=== PATIENT | female | born 1980 | race Caucasian/White ===

== ENCOUNTER 2017-06-04 08:30 | Inpatient (IN) | payer OTHER, BC ==
[2017-06-05] MEDS ORDERED: CITRIC ACID/SODIUM CITRATE 30 ML UNIT-DOSE CUP PO ONE ×2 (08:16→09:25)
[2017-06-05] MEDS ORDERED: ELECTROLYTE-148 SOLN 500 ML IV ONE (09:25)
[2017-06-05] MEDS: ELECTROLYTE-148 SOLN 1,000 ML IV SCH (10:00)
--- NOTE | 2017-06-05 10:41 | HP ---
Past Medical History - Primary Care Physician PCP:: Edin Almonte - Admission Chief Complaint: 39,2 weeks, previous c/s request of repeat c/s. ama History of Present Illness: 36 yo f 39,3 weeks, previous c/s , request of repeat c/s , rba discussed , explained declined History Source: Patient Limitations to Obtaining History: No Limitations - Past Medical History Pulmonary: Yes: Asthma ...: 2 ...Para: 1 ...Term: 1 ...: 0 ...Spon : 0 ...Induced : 0 ...Multiple Gestation: 0 ...LMP: 09/03/16 ... Weeks Gestation by Dates: 39.2 ...EDC by Dates: 06/10/17 ...EDC by Sono: 06/10/17 - Past Surgical History Past Surgical History: Yes: Hx Myomectomy: No Hx Transabdominal Cerclage: No - Smoking History Smoking history: Never smoked Have you smoked in the past 12 months: No Aproximately how many cigarettes per day: 2 - Alcohol/Substance Use Hx Alcohol Use: No History of Substance Use: reports: None - Social History Usual Living Arrangement: Yes: With Spouse History of Recent Travel: No Home Medications - Allergies Allergies/Adverse Reactions: Allergies Allergy/AdvReac Type Severity Reaction Status Date / Time Sulfa (Sulfonamide Allergy Unknown Rash Verified 06/05/17 08:44 Antibiotics) - Home Medications Home Medications: Ambulatory Orders Docusate Sodium [Colace -] 100 mg PO DAILY 06/05/17 Montelukast Na [Singulair -] 10 mg PO HS 06/05/17 Vit/Iron Fumarate/FA [ Tablet] 1 each PO DAILY 06/05/17 Ranitidine HCl [Zantac] 150 mg PO DAILY 06/05/17 Family Disease History - Family Disease History Family Disease History: CA: Grandparent (colon), Father (colon) Review of Systems - Review of Systems Constitutional: reports: No Symptoms Eyes: reports: No Symptoms HENT: reports: No Symptoms Neck: reports: No Symptoms Cardiovascular: reports: No Symptoms Respiratory: reports: No Symptoms Gastrointestinal: reports: Constipation, Indigestion Breasts: reports: No Symptoms Reported Musculoskeletal: reports: No Symptoms Integumentary: reports: No Symptoms Neurological: reports: No Symptoms Endocrine: reports: No Symptoms Hematology/Lymphatic: reports: No Symptoms Psychiatric: reports: No Symptoms Physical Exam - Maternity Vital Signs: Vital Signs Temperature 97.9 F 06/05/17 08:16 Pulse Rate 90 06/05/17 10:00 Respiratory Rate 20 06/05/17 10:00 Blood Pressure 103/64 06/05/17 10:00 O2 Sat by Pulse Oximetry (%) Constitutional: Yes: Well Nourished, No Distress, Calm Eyes: Yes: WNL, Conjunctiva Clear, EOM Intact HENT: Yes: WNL, Atraumatic, Normocephalic Neck: Yes: WNL, Supple, Trachea Midline Cardiovascular: Yes: WNL, Regular Rate and Rhythm Breast(s): Yes: WNL - Abdominal Exam/OB Fundal Height: 40 Number of Fetuses: Single Presentation: Vertex Monitor Mode: External Heart Rate Location: [facility] Category: I Accelerations: Uniform Decelerations: None - Vaginal Exam/OB Vaginal Bleediing: No Speculum Exam: No Dilatation (cm): closed Effacement (%): 0 Amniotic Membrane Status: Intact Presentation: Vertex/Position Station: -3 - Physical Exam Musculoskeletal: Yes: WNL Edema: Yes Edema: LLE: Trace, RLE: Trace Deep Tendon Reflex Grade: Normal +2 ...Motor Strength: WNL Psychiatric: Yes: WNL Hemorrhage Risk Assessment - Risk Factors Medium Risk Factors: Yes: None High Risk Factors: Yes: None Risk Score: 1 Risk Level: Medium Risk Problem List - Problems (1) with 39 completed weeks gestation Code(s): Z3A.39 - 39 WEEKS GESTATION OF (2) Previous section complicating , antepartum condition or complication Code(s): O34.219 - MATERNAL CARE FOR UNSP TYPE SCAR FROM PREVIOUS DEL Assessment/Plan for repeat c/s , rba discussed
[2017-06-05] MEDS ORDERED: WITCH HAZEL 50% (TUCKS) 40 PAD/JAR PAD TP PRN (10:44)
[2017-06-05] MEDS ORDERED: BENZOCAINE 28 GM HEMORRHOIDAL OINTMENT PR PRN (10:44)
[2017-06-05] MEDS ORDERED: METHYLERGONOVINE MALEATE 0.2 MG/1 ML AMP IM PRN (10:44)
[2017-06-05] MEDS ORDERED: oxyCODONE HCL 5 MG TABLET PO PRN ×2 (10:44)
[2017-06-05] MEDS ORDERED: diphenhydrAMINE HCL 25 MG CAPSULE (FP) PO PRN (10:44)
[2017-06-05] MEDS ORDERED: BENZOCAINE 20% 57 GM BOTTLE TP PRN (10:44)
[2017-06-05] MEDS ORDERED: OXYTOCIN 20 UNITS in 0.9% NS 1,000 ML IV SCH (10:45)
[2017-06-05] MEDS ORDERED: ONDANSETRON 4 MG/2 ML VIAL IVPB PRN (11:32)
[2017-06-05 13:52] VITALS: BMI 23.6
[2017-06-05] MEDS: IBUPROFEN 800 MG/8 ML IJ IVPB PRN ×2 (14:41→21:38)
--- NOTE | 2017-06-05 15:09 | OP ---
DATE OF OPERATION: 06/05/2017 PREOPERATIVE DIAGNOSIS: at 39.4 weeks' gestation, previous section, request for section. POSTOPERATIVE DIAGNOSIS: at 39.4 weeks' gestation, previous section, request for section. PROCEDURE PERFORMED: Repeat low-segment transverse section. SURGEON: Kelsi Oneill MD DAMAGE ASSESSOR: MARTIN Suarez ANESTHESIA: Spinal. ANESTHESIOLOGIST: Anthony Gonzalez MD ESTIMATED BLOOD LOSS: 500 mL. DESCRIPTION OF PROCEDURE: The patient was taken to the operating room and had adequate spinal anesthesia. Abdomen and perineum were prepped and draped. A Pfannenstiel abdominal skin incision was made. The abdominal wall was cut layer by layer, until the peritoneum was exposed and incised. Upon entering the abdominal cavity, the lower uterine segment was identified and uterovesical fold of peritoneum established. The bladder was pushed down. There were large blood vessels on each side of the previous uterine incision. At this time, with bandage scissors, the incision was extended laterally. The amniotic sac was entered. Clear fluid. Head delivered from right occiput transverse position. Nasopharynx was suctioned and live baby boy was delivered with Apgars of 8 and 9. The placenta was delivered manually. The uterine cavity was cleaned of all remaining tissue. The uterine incision was closed in 2 layers, the 1st layer with 0 Biosyn continuous suture and the 2nd layer with 0 Biosyn imbricating the 1st layer. The bladder flap was closed with 0 Biosyn continuous suture. Both tubes and ovaries were checked and were normal. No active bleeding was seen. All the lap, sponge and instrument counts were correct. Then the peritoneum was closed with 0 Biosyn continuous suture. The muscles were brought together with interrupted suture of 0 Biosyn. The fascia was closed with 0 Biosyn continuous suture, the subcutaneous fat with interrupted suture of 0 Biosyn, and the skin was closed with 4-0 Biosyn subcuticular sutures. The patient tolerated the procedure well, and left the OR in good condition. KELSI ONEILL M.D. [id number]
[2017-06-05] MEDS ORDERED: DEXTROSE 5%-WATER - 50 ML IVPB ONE ×2 (17:29→17:38)
[2017-06-05] MEDS ORDERED: ceFAZolin SODIUM 1 GM VIAL ONE ×2 (17:30→17:38)
[2017-06-05] MEDS: CEFAZOLIN 1 GM in DEXTROSE 5%-WATER - 50 ML IVPB SCH (17:40)
[2017-06-05] MEDS: MONTELUKAST NA 10 MG TABLET PO SCH (21:39)
[2017-06-05] MEDS: SIMETHICONE 80 MG TAB.CHEW (FP) PO PRN (21:39)
[2017-06-06] MEDS ORDERED: ceFAZolin SODIUM 1 GM VIAL ONE (01:30)
[2017-06-06] MEDS ORDERED: DEXTROSE 5%-WATER - 50 ML IVPB ONE (01:30)
[2017-06-06] MEDS: CEFAZOLIN 1 GM in DEXTROSE 5%-WATER - 50 ML IVPB SCH (01:33)
--- NOTE | 2017-06-06 01:53 | PN ---
Post Progress Note - Subjective Subjective: Patient without acute complaints. Reports tolerating oral intake without nausea or vomiting. Ambulating without dizziness. s/p hammer, voiding Denies fevers or chills. Pain well controlled with oral pain medication. Pumping, + colostrum Passing flatus. Post Day: 1 Type of Delivery: Repeat C/S Vital Signs: Vital Signs Temperature 98.1 F 06/05/17 22:00 Pulse Rate 72 06/05/17 22:00 Respiratory Rate 18 06/06/17 01:00 Blood Pressure 103/66 06/05/17 22:00 O2 Sat by Pulse Oximetry (%) 99 06/05/17 13:35 Breast Exam: Yes: Engorged Uterus: Yes: Fundus Firm, Fundus below umbilicus Incision: Yes: Dressing dry and intact Abdomen/GI: Yes: Abdomen soft. No: Tender Lochia: Yes: Serosa Lochia, amount: Small Extremities: Yes: Calves non-tender. No: Edema Activity: Ambulating - Labs Labs: Laboratory Tests 06/06/17 07:30 WBC 8.6 Hgb 11.1 Hct 33.0 Plt Count 157 Assessment/Plan 36 yo POD # 1 s/p R CD, afebrile, vital signs stable, doing well 1. Continue routine postoperative care. 2. AM CBC Stable without anemia 3. Rh negative status, will f/u rhogam protocol. 4. Encourage ambulation and incentive spirometer use 5. Continue oral pain medication 6. Anticipate discharge home postoperative day #3 or #4
[2017-06-06] MEDS: ACETAMINOPHEN 325 MG TABLET (FP) PO PRN ×5 (04:33→21:25)
[2017-06-06] MEDS: SIMETHICONE 80 MG TAB.CHEW (FP) PO PRN ×5 (04:33→21:25)
[2017-06-06] MEDS: IBUPROFEN 600 MG TABLET (FP) PO PRN ×5 (04:34→21:26)
[2017-06-06 08:06] LABS: BASOPHIL 0.4 % (0-2.0); EOSINOPHIL 0.5 % (0-4.5); MCH 30.9 pg (25.7-33.7); MCHC 33.6 g/dl (32.0-36.0); MEAN PLT VOLUME 7.3 fl (7.5-11.1); NEUTROPHILS 80.1 % (42.8-82.8); PLATELET COUNT 157 K/MM3 (134-434); RDW 13.4 % (11.6-15.6); WHITE BLOOD COUNT 8.6 K/mm3 (4.0-10.0)
[2017-06-06] MEDS ORDERED: TUBERCULIN PPD 5 TU/0.1ML SYRINGE (IN PATIENT USE ONLY) ID ONE (09:00)
[2017-06-06] MEDS ORDERED: BISACODYL 10 MG SUPP.RECT PR PRN (10:44)
[2017-06-06] MEDS: RANITIDINE HCL 150 MG TABLET (FP) PO SCH (10:53)
[2017-06-06] MEDS: ENOXAPARIN NA (PORCINE) 40 MG/0.4 ML DISP.SYRIN SQ SCH (10:53)
--- NOTE | 2017-06-06 11:07 | PN ---
Progress Note (short form) - Note Progress Note: Anesthesiology Post-op POD#1 s/p repeat c/s under spinal anesthesia under spinal anesthesia. Pt. has no complaints, she denies h/a and is able to walk and urinate without difficulty. VSS.
[2017-06-06] MEDS: DEXTROSE 5%-LACTATED RINGERS 1,000 ML IV SCH (15:09)
[2017-06-06] MEDS: ELECTROLYTE-148 SOLN 1,000 ML IV SCH (15:10)
[2017-06-06] MEDS: MONTELUKAST NA 10 MG TABLET PO SCH (22:31)
[2017-06-07] MEDS: SIMETHICONE 80 MG TAB.CHEW (FP) PO PRN ×5 (03:40→21:29)
[2017-06-07] MEDS: IBUPROFEN 600 MG TABLET (FP) PO PRN ×5 (03:40→21:30)
[2017-06-07] MEDS: ACETAMINOPHEN 325 MG TABLET (FP) PO PRN ×5 (03:41→21:29)
[2017-06-07] MEDS: RANITIDINE HCL 150 MG TABLET (FP) PO SCH (10:27)
[2017-06-07] MEDS: ENOXAPARIN NA (PORCINE) 40 MG/0.4 ML DISP.SYRIN SQ SCH (10:28)
--- NOTE | 2017-06-07 14:39 | PN ---
Progress Note (short form) - Note Progress Note: pod 2 s/p repeat c/s doing well, has gas pain, passing gas Last Vital Signs Temp Pulse Resp BP Pulse Ox 98.2 F 99 H 20 126/75 99 06/07/17 10:00 06/07/17 10:00 06/07/17 10:00 06/07/17 10:00 06/05/17 13:35 CBC, BMP 06/06/17 07:30 abdomen soft, no distension, no cav . BS present incision dry, clean no calf tenderness plan ambulate, dulcolax prn, cbc in am Problem List - Problems (1) with 39 completed weeks gestation Code(s): Z3A.39 - 39 WEEKS GESTATION OF (2) Previous section complicating , antepartum condition or complication Code(s): O34.219 - MATERNAL CARE FOR UNSP TYPE SCAR FROM PREVIOUS DEL
[2017-06-07] MEDS: DEXTROSE 5%-LACTATED RINGERS 1,000 ML IV SCH (17:10)
[2017-06-07] MEDS: ELECTROLYTE-148 SOLN 1,000 ML IV SCH (17:10)
[2017-06-07] MEDS: SENNOSIDES/DOCUSATE COMBO (SENNA PLUS) TABLET (UD) PO PRN (21:29)
[2017-06-07] MEDS: MONTELUKAST NA 10 MG TABLET PO SCH (21:32)
[2017-06-08] MEDS: SIMETHICONE 80 MG TAB.CHEW (FP) PO PRN ×4 (06:04→21:46)
[2017-06-08] MEDS: ACETAMINOPHEN 325 MG TABLET (FP) PO PRN ×4 (06:05→21:45)
[2017-06-08] MEDS: IBUPROFEN 600 MG TABLET (FP) PO PRN ×4 (06:05→21:46)
[2017-06-08 07:51] LABS: BASOPHIL 0.3 % (0-2.0); EOSINOPHIL 0.7 % (0-4.5); MCH 31.4 pg (25.7-33.7); MEAN CELL VOLUME 92.4 fl (80-96); MEAN PLT VOLUME 7.1 fl (7.5-11.1); NEUTROPHILS 79.2 % (42.8-82.8); PLATELET COUNT 185 K/MM3 (134-434); RDW 13.9 % (11.6-15.6); WHITE BLOOD COUNT 10.6 K/mm3 (4.0-10.0)
[2017-06-08] MEDS: ENOXAPARIN NA (PORCINE) 40 MG/0.4 ML DISP.SYRIN SQ SCH (10:22)
[2017-06-08] MEDS: ELECTROLYTE-148 SOLN 1,000 ML IV SCH (10:22)
[2017-06-08] MEDS: RANITIDINE HCL 150 MG TABLET (FP) PO SCH (10:22)
[2017-06-08] MEDS: DEXTROSE 5%-LACTATED RINGERS 1,000 ML IV SCH (18:06)
[2017-06-08] MEDS: MONTELUKAST NA 10 MG TABLET PO SCH (21:45)
[2017-06-08] MEDS: SENNOSIDES/DOCUSATE COMBO (SENNA PLUS) TABLET (UD) PO PRN (21:45)
--- NOTE | 2017-06-08 22:20 | PN ---
Post Progress Note - Subjective Subjective: No complaints. Post Day: 3 Type of Delivery: Repeat C/S Vital Signs: Vital Signs Temperature 98.5 F 06/08/17 21:50 Pulse Rate 55 L 06/08/17 21:50 Respiratory Rate 20 06/08/17 21:50 Blood Pressure 103/70 06/08/17 21:50 O2 Sat by Pulse Oximetry (%) 99 06/05/17 13:35 Breast Exam: Yes: Soft Uterus: Yes: Fundus Firm, Fundus below umbilicus, Non-tender Incision: Yes: Sutures intact Abdomen/GI: Yes: Abdomen soft, Passing flatus, Tolerating PO Lochia: Yes: Rubra Lochia, amount: Small Extremities: Yes: Calves non-tender Perineum: Yes: Intact Activity: Ambulating - Labs Labs: CBC WBC 10.6 K/mm3 (4.0-10.0) H 06/08/17 06:00 RBC 3.59 M/mm3 (3.60-5.2) L 06/08/17 06:00 Hgb 11.3 GM/dL (10.7-15.3) 06/08/17 06:00 Hct 33.2 % (32.4-45.2) 06/08/17 06:00 MCV 92.4 fl (80-96) 06/08/17 06:00 MCH 31.4 pg (25.7-33.7) 06/08/17 06:00 MCHC 34.0 g/dl (32.0-36.0) 06/08/17 06:00 RDW 13.9 % (11.6-15.6) 06/08/17 06:00 Plt Count 185 K/MM3 (134-434) 06/08/17 06:00 MPV 7.1 fl (7.5-11.1) L 06/08/17 06:00 Neutrophils % 79.2 % (42.8-82.8) 06/08/17 06:00 Lymphocytes % 15.3 % (8-40) 06/08/17 06:00 Monocytes % 4.5 % (3.8-10.2) 06/08/17 06:00 Eosinophils % 0.7 % (0-4.5) 06/08/17 06:00 Basophils % 0.3 % (0-2.0) 06/08/17 06:00 Assessment/Plan 36yo POD#3 s/p repeat LT C/S, doing well stable, afebrile. The pt is asymptomatic for s/sxs of anemia. care instructions reviewed. Continue routine postop care. Ambulation encouraged.
[2017-06-09] MEDS: ELECTROLYTE-148 SOLN 1,000 ML IV SCH (09:01)
[2017-06-09] MEDS: ACETAMINOPHEN 325 MG TABLET (FP) PO PRN (09:02)
[2017-06-09] MEDS: RANITIDINE HCL 150 MG TABLET (FP) PO SCH (09:02)
[2017-06-09] MEDS: IBUPROFEN 600 MG TABLET (FP) PO PRN (09:02)
[2017-06-09] MEDS: SIMETHICONE 80 MG TAB.CHEW (FP) PO PRN (09:02)
[2017-06-09] MEDS: ENOXAPARIN NA (PORCINE) 40 MG/0.4 ML DISP.SYRIN SQ SCH (09:04)
--- NOTE | 2017-06-09 11:09 | PN ---
Post Progress Note - Subjective Subjective: No complaints Post Day: 4 Type of Delivery: Repeat C/S Vital Signs: Vital Signs Temperature 98.5 F 06/08/17 21:50 Pulse Rate 55 L 06/08/17 21:50 Respiratory Rate 20 06/08/17 21:50 Blood Pressure 103/70 06/08/17 21:50 O2 Sat by Pulse Oximetry (%) 99 06/05/17 13:35 Breast Exam: Yes: Soft Uterus: Yes: Fundus Firm, Fundus below umbilicus, Non-tender Incision: Yes: Sutures intact Abdomen/GI: Yes: Abdomen soft, Passing flatus, Tolerating PO Lochia: Yes: Rubra Lochia, amount: Small Extremities: Yes: Calves non-tender Perineum: Yes: Intact Activity: Ambulating - Labs Labs: CBC WBC 10.6 K/mm3 (4.0-10.0) H 06/08/17 06:00 RBC 3.59 M/mm3 (3.60-5.2) L 06/08/17 06:00 Hgb 11.3 GM/dL (10.7-15.3) 06/08/17 06:00 Hct 33.2 % (32.4-45.2) 06/08/17 06:00 MCV 92.4 fl (80-96) 06/08/17 06:00 MCH 31.4 pg (25.7-33.7) 06/08/17 06:00 MCHC 34.0 g/dl (32.0-36.0) 06/08/17 06:00 RDW 13.9 % (11.6-15.6) 06/08/17 06:00 Plt Count 185 K/MM3 (134-434) 06/08/17 06:00 MPV 7.1 fl (7.5-11.1) L 06/08/17 06:00 Neutrophils % 79.2 % (42.8-82.8) 06/08/17 06:00 Lymphocytes % 15.3 % (8-40) 06/08/17 06:00 Monocytes % 4.5 % (3.8-10.2) 06/08/17 06:00 Eosinophils % 0.7 % (0-4.5) 06/08/17 06:00 Basophils % 0.3 % (0-2.0) 06/08/17 06:00 Assessment/Plan 36yo POD#4 s/p repeat LT C/S, doing well stable, afebrile. The pt is asymptomatic for s/sxs of anemia. care instructions reviewed. Continue routine postop care. Ambulation encouraged.
[2017-06-09] MEDS: DEXTROSE 5%-LACTATED RINGERS 1,000 ML IV SCH (11:32)
[2017-06-09 11:38] VITALS: BP 128/66; PULSE 83; TEMP 98.1
--- NOTE | 2017-06-09 14:09 | DS ---
Physical Exam-BACK WEDGER Vital Signs: Vital Signs Temperature 98.1 F 06/09/17 10:00 Pulse Rate 83 06/09/17 10:00 Respiratory Rate 20 06/09/17 10:00 Blood Pressure 128/66 06/09/17 10:00 O2 Sat by Pulse Oximetry (%) 99 06/05/17 13:35 Constitutional: Yes: Well Nourished, No Distress, Calm Eyes: Yes: WNL, Conjunctiva Clear, EOM Intact HENT: Yes: WNL, Atraumatic, Normocephalic Neck: Yes: WNL, Supple, Trachea Midline Cardiovascular: Yes: WNL, Regular Rate and Rhythm Respiratory: Yes: WNL, Regular, CTA Bilaterally Gastrointestinal: Yes: WNL ...Rectal Exam: Yes: WNL Renal/: Yes: WNL ....Post : Yes: Uterus firm, Uterus non-tender, Slight lochia rubra Breast(s): Yes: WNL Musculoskeletal: Yes: WNL Extremities: Yes: WNL Integumentary: Yes: WNL Wound/Incision: Yes: Clean/Dry, Well Approximated, Sutures Intact Neurological: Yes: WNL, Alert, Oriented ...Motor Strength: WNL Psychiatric: Yes: WNL, Alert, Oriented Labs: CBC, BMP 06/08/17 06:00 Delivery - Delivery Section: Repeat, Low Flap Transverse (no complication) Type of Anesthesia: Spinal Episiotomy/Laceration: None EBL (cc): 500 Delivery, Single - Stages of Labor Date of Delivery: 06/05/17 Time of Delivery: 11:10 Time Placenta Delivered: 11:11 Placenta: Yes: Expressed - Condition of Infant Data Warehousing Architect/Driving School Instructor Present: No Infant Gender: Male Position: Right, OT Total Hours ROM (Hrs/Mins): 0/2 - 1 Minute Total Score: 8 5 Minutes Total Score: 9 - Feeding Plan Initial Plan: Exclusive throughout hospitalization Discharge Summary Reason For Visit: REPEAT C/SECTION Procedures: Principal: repeat lst c/s Condition: Good - Instructions Diet, Activity, Other Instructions: regular diet, follow up office 1 week Referrals: Edin Almonte MD [Staff Physician] - Disposition: HOME - Home Medications Comprehensive Discharge Medication List: Ambulatory Orders Docusate Sodium [Colace -] 100 mg PO DAILY 06/05/17 Montelukast Na [Singulair -] 10 mg PO HS 06/05/17 Vit/Iron Fumarate/FA [ Tablet] 1 each PO DAILY 06/05/17 Ranitidine HCl [Zantac] 150 mg PO DAILY 06/05/17 Ibuprofen [Motrin -] 600 mg PO QID #28 tablet 06/06/17
== END 2017-06-09 11:00 | disposition home or self-care (01) | DRG 766 ==
LOC: JLDR 06-05 08:00 → J3W 06-05 14:12
PROVIDERS: ADMIT Obstetrics & Gynecology; ATTEND Obstetrics & Gynecology
PROC: 10D00Z1 Extraction of Products of Conception, Low, Open Approach (ICD-10-PCS; principal; 2017-06-05)
DX: O34.211 Maternal care for low transverse scar from previous cesarean delivery (principal); N85.8 Other specified noninflammatory disorders of uterus; Z3A.39 39 weeks gestation of pregnancy; Z37.0 Single live birth
CPT/HCPCS: 36415; 85025; 85461; 86850; 86870; 86900; 86901; 86902; 86999; 94010

== ENCOUNTER → 2018-05-19 | Day surgery (SDC) | payer OTHER, BC ==
--- NOTE | 2018-05-20 10:05 | PATH ---
Surgical Pathology Report Patient Name: NENO LEAL [facility]. Rec. #: [id number] /Age/Gender: 1980 (Age: 37) / F Account: [id number] [facility] Taken: 05/19/2018 Received: 05/19/2018 Reported: 05/20/2018 Physicians: Lula Serra M.D. Specimen(s) Received LEFT BREAST 1:00 Clinical History Palpable mass Ultrasound findings: Probably benign Final Diagnosis BREAST, LEFT, 1:00, ULTRASOUND GUIDED CORE BIOPSY: BENIGN BREAST TISSUE WITH STROMAL FIBROSIS. Electronically Signed Teresita Rincon M.D. Gross Description Received in formalin labeled "left 1:00," are 7 fierro-yellow, cylindrical portions of fibroadipose tissue ranging from 0.3-2.0 cm in length and averaging 0.1 cm in diameter. The specimens are submitted in toto in one cassette. Time to formalin fixation: Less than one minute Total formalin fixation time: Approximately 9 hours. /05/19/2018 [facility]/05/19/2018
== END | disposition home or self-care (01) ==
LOC: JRADUS-SUR 08:30
PROVIDERS: ATTEND Obstetrics & Gynecology
PROC: 0HBU3ZX Excision of Left Breast, Percutaneous Approach, Diagnostic (ICD-10-PCS; principal; 2018-05-19)
DX: N60.32 Fibrosclerosis of left breast (principal); N63.21 Unspecified lump in the left breast, upper outer quadrant
CPT/HCPCS: 19083; 87899; 88305-TC; A4648

== ENCOUNTER 2018-05-23 07:09 | Day surgery (SDC) | payer OTHER, BC ==
[2018-05-22 14:56] VITALS: BMI 20.7
[2018-05-23 07:41] VITALS: TEMP 98.3
[2018-05-23 09:25] VITALS: BP 106/61; PULSE 66
--- NOTE | 2018-05-26 18:52 | PATH ---
Surgical Pathology Report Patient Name: NENO LEAL [facility]. Rec. #: [id number] /Age/Gender: 1980 (Age: 37) / F Account: [id number] Location: U-ENDOSCOPY Taken: 05/23/2018 Received: 05/23/2018 Reported: 05/26/2018 Physicians: Gordy Aviles M.D. 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 Electronically Signed Brittni Ghotra M.D. Gross Description Received in formalin, labeled "polyp from sigmoid" is a fierro, irregular portion of soft tissue measuring 0.3 cm. in greatest dimension. The specimen is submitted in toto in one cassette. 05/23/201805/23/2018
== END 2018-05-23 09:25 | disposition home or self-care (01) ==
LOC: JASU-ENDO 07:09
PROVIDERS: ATTEND Internal Medicine Gastroenterology
PROC: 0DBN8ZX Excision of Sigmoid Colon, Via Natural or Artificial Opening Endoscopic, Diagnostic (ICD-10-PCS; principal; 2018-05-23 08:00)
DX: Z12.11 Encounter for screening for malignant neoplasm of colon (principal); Z80.0 Family history of malignant neoplasm of digestive organs; K92.1 Melena; D12.5 Benign neoplasm of sigmoid colon; K64.8 Other hemorrhoids; K63.89 Other specified diseases of intestine; Z33.1 Pregnant state, incidental; Z53.8 Procedure and treatment not carried out for other reasons
CPT/HCPCS: 88305-TC

== ENCOUNTER 2018-11-25 02:05 | Inpatient (IN) | payer BC ==
[2018-11-25] MEDS ORDERED: TERBUTALINE SULFATE 1 MG/1 ML VIAL SQ ONE ×2 (03:15→04:30)
--- NOTE | 2018-11-25 03:49 | HP ---
Past Medical History - Primary Care Physician PCP:: Edin Almonte - Admission Chief Complaint: 38yo P2 with contructions, no VB, no LOF, + FM, + bloody show History of Present Illness: 1. AMA - nl Materni 21 2. Prior c/section x 2 3. Rh neg - s/p RhoGam 09/10/18 4. CF carrier - FOB not History Source: Patient, Medical Record Limitations to Obtaining History: No Limitations - Past Medical History Pulmonary: Yes: Asthma Gastrointestinal: Yes: GERD, Hemorrhoids ...: 3 ...Term: 2 ... Weeks Gestation by Dates: 39.2 - Past Surgical History Past Surgical History: Yes: Hx Myomectomy: No Hx Transabdominal Cerclage: No Additional Surgical History: Floating rib removed as a child - Smoking History Smoking history: Never smoked Have you smoked in the past 12 months: No Aproximately how many cigarettes per day: 0 - Alcohol/Substance Use Hx Alcohol Use: No History of Substance Use: reports: None - Social History Usual Living Arrangement: Yes: With Spouse History of Recent Travel: No Home Medications - Allergies Allergies/Adverse Reactions: Allergies Allergy/AdvReac Type Severity Reaction Status Date / Time Sulfa (Sulfonamide Allergy Unknown Rash Verified 05/01/18 22:18 Antibiotics) - Home Medications Home Medications: Ambulatory Orders Docusate Sodium [Colace -] 100 mg PO DAILY 06/05/17 Montelukast Na [Singulair -] 10 mg PO HS 06/05/17 Vit/Iron Fum/Folic AC [ Tablet] 1 each PO DAILY 06/05/17 Ranitidine HCl [Zantac] 150 mg PO DAILY 06/05/17 Polyethylene Glycol 3350 [Miralax 255 gm Btl -] 17 gm PO DAILY 05/22/18 Family Disease History - Family Disease History Family Disease History: CA: Grandparent (colon), Father (colon) Review of Systems - Review of Systems Constitutional: reports: No Symptoms Eyes: reports: No Symptoms HENT: reports: No Symptoms Neck: reports: No Symptoms Cardiovascular: reports: No Symptoms Respiratory: reports: No Symptoms Gastrointestinal: reports: No Symptoms Genitourinary: reports: No Symptoms Breasts: reports: No Symptoms Reported Musculoskeletal: reports: No Symptoms Integumentary: reports: No Symptoms Neurological: reports: No Symptoms Endocrine: reports: No Symptoms Hematology/Lymphatic: reports: No Symptoms Psychiatric: reports: No Symptoms Pain Intensity: 10 Physical Exam - Maternity Constitutional: Yes: Well Nourished, No Distress, Calm Eyes: Yes: WNL, Conjunctiva Clear, EOM Intact HENT: Yes: WNL, Atraumatic, Normocephalic Neck: Yes: WNL, Supple, Trachea Midline Cardiovascular: Yes: WNL, Regular Rate and Rhythm Lungs: Clear to auscultation Breast(s): Yes: WNL - Abdominal Exam/OB Fundal Height: 39 Number of Fetuses: Single Presentation: Vertex Contractions: Yes Regularity: Regular (Q4min) Intensity: Moderate Monitor Mode: External Heart Rate (range): 140s Heart Rate Location: Midline Category: II (One time HR decel, improved FHR with resolution of contuctions, post Terbutaline SQ) Accelerations: Uniform Decelerations: Variable (1 decell with contruction) - Vaginal Exam/OB Vaginal Bleediing: Bloody Show Speculum Exam: No Dilatation (cm): closed Effacement (%): long Amniotic Membrane Status: Intact Presentation: Vertex/Position Station: -3 - Physical Exam Musculoskeletal: Yes: WNL Extremities: Yes: WNL Edema: No Integumentary: Yes: WNL ...Motor Strength: WNL Psychiatric: Yes: WNL, Alert, Oriented Assessment/Plan 38yo P2 @ 39.2wks with contractions for scheduled c/section today Admit to L&D IVF hydration NPO SQ .25mg of terbutaline given contractions resolved FHR Category 1 will plan to proceed with planed c/section in am
[2018-11-25] MEDS ORDERED: ELECTROLYTE-148 SOLN 1,000 ML IV SCH ×2 (04:15→04:30)
[2018-11-25 04:23] VITALS: BMI 23.6
[2018-11-25] MEDS ORDERED: CITRIC ACID/SODIUM CITRATE 30 ML UNIT-DOSE CUP PO ONE ×3 (04:30→21:15)
[2018-11-25] MEDS ORDERED: OXYTOCIN 20 UNITS in 0.9% NS 20 UNIT/1,000 ML INFUS.BAG IV ONE (07:53)
[2018-11-25] MEDS ORDERED: PHENYLEPHRINE HCL 10 MG/1 ML SINGLE DOSE VIAL ONE (08:35)
[2018-11-25] MEDS ORDERED: morphine SULFATE/Preservative Free 0.5 MG/ML (1cc Syringe) ONE (08:35)
[2018-11-25] MEDS ORDERED: ACETAMINOPHEN 325 MG TABLET (FP) PO PRN (08:59)
[2018-11-25] MEDS ORDERED: ceFAZolin SODIUM 1 GM VIAL ONE (09:13)
[2018-11-25] MEDS ORDERED: MIDAZOLAM HCL 2 MG/2 ML SINGLE DOSE VIAL ONE (09:13)
[2018-11-25 09:41] LABS: ARTERIAL BLD GAS O2 SATURATION 62.8 % (90-98.9); ARTERIAL BLOOD GAS BASE EXCESS -1.2 meq/l (-2-2); ARTERIAL BLOOD GAS PCO2 44.3 mmHg (35-45); ARTERIAL BLOOD GAS PO2 28.9 mmHg (80-100); ARTERIAL BLOOD GAS pH 7.35 (7.35-7.45)
[2018-11-25 09:44] LABS: VENOUS PC02 37.4 mmHg (38-52); VENOUS PH 7.42 (7.32-7.42); VENOUS PO2 30.9 mmHg (28-48)
[2018-11-25] MEDS ORDERED: METHYLERGONOVINE MALEATE 0.2 MG/1 ML AMP IM PRN (09:47)
[2018-11-25] MEDS ORDERED: BENZOCAINE 20% 57 GM BOTTLE TP PRN (09:47)
[2018-11-25] MEDS ORDERED: diphenhydrAMINE HCL 25 MG CAPSULE (FP) PO PRN (09:47)
[2018-11-25] MEDS ORDERED: WITCH HAZEL 50% (TUCKS) 40 PAD/JAR PAD TP PRN (09:47)
[2018-11-25] MEDS ORDERED: oxyCODONE HCL 5 MG TABLET PO PRN ×2 (09:47)
[2018-11-25] MEDS ORDERED: BENZOCAINE 28 GM HEMORRHOIDAL OINTMENT PR PRN (09:47)
[2018-11-25] MEDS ORDERED: OXYTOCIN 20 UNITS in 0.9% NS 20 UNIT/1,000 ML INFUS.BAG IV SCH (10:00)
[2018-11-25] MEDS: OXYTOCIN 20 UNITS in 0.9% NS 20 UNIT/1,000 ML INFUS.BAG IV SCH ×2 (11:08→15:15)
[2018-11-25] MEDS: IBUPROFEN 800 MG/8 ML IJ IVPB PRN ×2 (11:37→20:36)
[2018-11-25] MEDS: POLYETHYLENE GLYCOL 3350 119 GM BTL PO SCH (12:24)
--- NOTE | 2018-11-25 13:26 | OP ---
DATE OF OPERATION: 11/25/2018 PREOPERATIVE DIAGNOSIS: 39 weeks, two previous sections, request of repeat section and tubal ligation. SURGEON: Edin Oneill MD INSURANCE PROCESSING CLERK: Thais Marti MD ESTIMATED BLOOD LOSS: 500 mL. FINDINGS: A live baby boy. Apgars 9, 9. Meconium-stained amniotic fluid noted. DESCRIPTION OF PROCEDURE: The patient was taken to the operating room under adequate spinal anesthesia. Abdomen and perineum were prepped and draped. Pfannenstiel abdominal skin incision was made over the previous incision. Abdominal wall was cut layer by layer until the peritoneum was exposed and incised. Upon entering the abdominal cavity, a lower uterine segment was identified and uterovesical fold of peritoneum established. Bladder was pushed down. Then with the lower blade of the Garland retractor in the pelvis, a low transverse uterine incision was made. Incision extended laterally. Amniotic sac was entered. Meconium-stained amniotic fluid noted. Head delivered. Nasopharynx was suctioned. Live baby boy was delivered without any difficulty. Placenta was delivered manually. Uterine cavity was cleaned of all remaining tissue. Uterine incision was closed in 2 layers, the 1st layer with 0 Biosyn continuous suture, the 2nd layer with 0 Biosyn imbricating the 1st layer. Both tubes and ovaries were checked and were normal. No active bleeding was seen. Right tube was grasped with a Lita clamp. Right tube was doubly tied with 2-0 plain. A portion of the tube was removed. Then the salpinx was cauterized. The same procedure repeated for the opposite tube. No active bleeding was seen. All of the lap pad, sponge, and instrument counts were correct. Peritoneum was closed with 0 Biosyn continuous suture. Muscles were brought together with interrupted sutures of 0 Biosyn. Fascia was closed with 0 Biosyn continuous suture. Subcutaneous fat interrupted suture of 0 Biosyn and the skin was closed with 4-0 Biosyn subcuticular continuous suture. The patient tolerated the procedure well and left the OR in good condition. EDIN ONEILL M.D. /[id number]
[2018-11-25] MEDS ORDERED: ELECTROLYTE-148 SOLN 500 ML IV ONE (14:15)
[2018-11-25] MEDS ORDERED: ELECTROLYTE-148 SOLN 500 ML IV SCH (14:45)
[2018-11-25] MEDS ORDERED: TUBERCULIN PPD 5 TU/0.1ML SYRINGE (IN PATIENT USE ONLY) ID ONE (15:30)
[2018-11-25] MEDS: CEFAZOLIN 1 GM/D5W 1 GM/50 ML BAG IVPB SCH (17:28)
[2018-11-25] MEDS ORDERED: DEXTROSE 5%-LACTATED RINGERS 1,000 ML IV SCH (18:00)
[2018-11-25] MEDS: SIMETHICONE 80 MG TAB.CHEW (FP) PO PRN (20:37)
[2018-11-25] MEDS: RANITIDINE HCL 150 MG TABLET (FP) PO PRN (21:51)
[2018-11-25] MEDS: MONTELUKAST NA 10 MG TABLET PO SCH (22:24)
[2018-11-26] MEDS: CEFAZOLIN 1 GM/D5W 1 GM/50 ML BAG IVPB SCH (01:43)
[2018-11-26] MEDS: IBUPROFEN 800 MG/8 ML IJ IVPB PRN (04:31)
[2018-11-26 07:36] LABS: BASO % 0.5 % (0-2.0); EOS % 0.4 % (0-4.5); HEMATOCRIT 33.9 % (32.4-45.2); HEMOGLOBIN 11.8 GM/dL (10.7-15.3); LYMPH % 14.2 % (8-40); MCHC 34.8 g/dl (32.0-36.0); MONO % 4.8 % (3.8-10.2); NEUT % 80.1 % (42.8-82.8); PLATELET COUNT 154 K/MM3 (134-434); RBC 3.69 M/mm3 (3.60-5.2); RDW 17.8 % (11.6-15.6); WHITE BLOOD COUNT 8.8 K/mm3 (4.0-10.0)
[2018-11-26] MEDS: SIMETHICONE 80 MG TAB.CHEW (FP) PO PRN ×4 (07:41→22:53)
[2018-11-26] MEDS: ACETAMINOPHEN 325 MG TABLET (FP) PO PRN ×3 (07:41→19:45)
[2018-11-26] MEDS: IBUPROFEN 600 MG TABLET (FP) PO PRN ×3 (09:14→19:43)
[2018-11-26] MEDS: POLYETHYLENE GLYCOL 3350 119 GM BTL PO SCH (09:36)
[2018-11-26] MEDS ORDERED: BISACODYL 10 MG SUPP.RECT PR PRN (09:48)
[2018-11-26] MEDS ORDERED: SODIUM CHLORIDE FOR INHALATION 3 ML VIAL.NEB IH PRN (10:34)
--- NOTE | 2018-11-26 14:35 | PN ---
Post Progress Note - Subjective Subjective: Patient without acute complaints. Reports tolerating oral intake without nausea or vomiting. Ambulating without dizziness. Denies fevers or chills. Pain well controlled with oral pain medication. Pumping without issue. Passing flatus, no BM. Post Day: 1 Type of Delivery: Repeat C/S Vital Signs: Vital Signs Temperature 97.8 F 11/26/18 08:21 Pulse Rate 75 11/26/18 08:21 Respiratory Rate 20 11/26/18 08:21 Blood Pressure 96/56 L 11/26/18 08:21 O2 Sat by Pulse Oximetry (%) Breast Exam: Yes: Soft Uterus: Yes: Fundus Firm, Fundus below umbilicus, Non-tender Incision: Yes: Dressing dry and intact Abdomen/GI: Yes: Abdomen soft, Passing flatus, Tolerating PO Lochia: Yes: Rubra Lochia, amount: Small Extremities: Yes: Calves non-tender Perineum: Yes: Intact Activity: Ambulating - Labs Labs: CBC WBC 8.8 K/mm3 (4.0-10.0) 11/26/18 07:00 RBC 3.69 M/mm3 (3.60-5.2) 11/26/18 07:00 Hgb 11.8 GM/dL (10.7-15.3) 11/26/18 07:00 Hct 33.9 % (32.4-45.2) 11/26/18 07:00 MCV 92.0 fl (80-96) 11/26/18 07:00 MCH 32.0 pg (25.7-33.7) 11/26/18 07:00 MCHC 34.8 g/dl (32.0-36.0) 11/26/18 07:00 RDW 17.8 % (11.6-15.6) H 11/26/18 07:00 Plt Count 154 K/MM3 (134-434) 11/26/18 07:00 MPV 7.0 fl (7.5-11.1) L 11/26/18 07:00 Absolute Neuts (auto) 7.0 K/mm3 (1.5-8.0) 11/26/18 07:00 Neutrophils % 80.1 % (42.8-82.8) 11/26/18 07:00 Lymphocytes % 14.2 % (8-40) D 11/26/18 07:00 Monocytes % 4.8 % (3.8-10.2) 11/26/18 07:00 Eosinophils % 0.4 % (0-4.5) 11/26/18 07:00 Basophils % 0.5 % (0-2.0) 11/26/18 07:00 Nucleated RBC % 0 % (0-0) 11/26/18 07:00 Assessment/Plan 38yo s/p repeat LT C/S, doing well stable, afebrile. The pt is asymptomatic for s/sxs of anemia. care instructions reviewed. Continue routine postop care. Ambulation encouraged.
[2018-11-26] MEDS: MONTELUKAST NA 10 MG TABLET PO SCH (22:07)
[2018-11-26] MEDS: RANITIDINE HCL 150 MG TABLET (FP) PO PRN (22:53)
[2018-11-27] MEDS: IBUPROFEN 600 MG TABLET (FP) PO PRN ×5 (01:49→21:31)
[2018-11-27] MEDS: ACETAMINOPHEN 325 MG TABLET (FP) PO PRN ×5 (01:49→21:31)
--- NOTE | 2018-11-27 04:37 | PN ---
Post Progress Note - Subjective Subjective: Patient without acute complaints. Reports feels gas pain / bloated. Passing flatus, no BM yet. Reports tolerating oral intake without nausea or vomiting. Ambulating without dizziness. Denies fevers or chills. Pain well controlled with oral pain medication. and pumping Post Day: 2 Type of Delivery: Repeat C/S Vital Signs: Vital Signs Temperature 98.3 F 11/26/18 21:13 Pulse Rate 66 11/26/18 21:13 Respiratory Rate 20 11/26/18 21:13 Blood Pressure 108/56 L 11/26/18 21:13 O2 Sat by Pulse Oximetry (%) 98 11/26/18 21:00 Breast Exam: Yes: Soft Uterus: Yes: Fundus Firm, Fundus below umbilicus Incision: Yes: Sutures intact. No: Redness, Oozing Abdomen/GI: Yes: Abdomen soft, Tender (mild incisional), Passing flatus, Tolerating PO. No: Abdominal Distention Lochia: Yes: Serosa Lochia, amount: Small Extremities: Yes: Calves non-tender Activity: Ambulating - Labs Labs: CBC WBC 8.8 K/mm3 (4.0-10.0) 11/26/18 07:00 RBC 3.69 M/mm3 (3.60-5.2) 11/26/18 07:00 Hgb 11.8 GM/dL (10.7-15.3) 11/26/18 07:00 Hct 33.9 % (32.4-45.2) 11/26/18 07:00 MCV 92.0 fl (80-96) 11/26/18 07:00 MCH 32.0 pg (25.7-33.7) 11/26/18 07:00 MCHC 34.8 g/dl (32.0-36.0) 11/26/18 07:00 RDW 17.8 % (11.6-15.6) H 11/26/18 07:00 Plt Count 154 K/MM3 (134-434) 11/26/18 07:00 MPV 7.0 fl (7.5-11.1) L 11/26/18 07:00 Absolute Neuts (auto) 7.0 K/mm3 (1.5-8.0) 11/26/18 07:00 Neutrophils % 80.1 % (42.8-82.8) 11/26/18 07:00 Lymphocytes % 14.2 % (8-40) D 11/26/18 07:00 Monocytes % 4.8 % (3.8-10.2) 11/26/18 07:00 Eosinophils % 0.4 % (0-4.5) 11/26/18 07:00 Basophils % 0.5 % (0-2.0) 11/26/18 07:00 Nucleated RBC % 0 % (0-0) 11/26/18 07:00 Assessment/Plan 38 yo POD # 2 s/p R CD, afebrile, vital signs stable, doing well 1. Continue routine postoperative care. 2. Encourage ambulation and incentive spirometer use 3. Continue oral pain medication 4. Anticipate discharge home postoperative day #3
--- NOTE | 2018-11-27 07:13 | DS ---
Physical Exam-MATERNAL FETAL PHYSICIAN Vital Signs: Vital Signs Temperature 98.3 F 11/26/18 21:13 Pulse Rate 66 11/26/18 21:13 Respiratory Rate 20 11/26/18 21:13 Blood Pressure 108/56 L 11/26/18 21:13 O2 Sat by Pulse Oximetry (%) 98 11/26/18 21:00 Labs: CBC, BMP 11/26/18 07:00 Delivery - Delivery Type of Anesthesia: Spinal Episiotomy/Laceration: None EBL (cc): 500 Delivery, Single - Stages of Labor Date 1st Stage Initiatied: 11/25/18 Time 1st Stage Initiated: 04:00 Date of Delivery: 11/25/18 Time of Delivery: 09:05 Time Placenta Delivered: 09:06 - Condition of Infant Undergraduate Internship/Photo Journalist Present: Yes Name: Farheen Flannery Infant Gender: Male Weight: 7 lb 2 oz Position: Right, OT Total Hours ROM (Hrs/Mins): 1 min. - 1 Minute Total Score: 9 5 Minutes Total Score: 9 - [place] Feeding Plan Initial Plan: Elected not to breastfeed exclusively throughout hospitalization Discharge Summary Reason For Visit: LABOR ADMIT Procedures: Principal: Delivery Hospital Course: Patient admitted for repeat CD in labor. POD # 1 patient ambulated, voiding, passing gas, tolerating oral intake and with adequate pain control. She fulfilled all criteria for discharge POD #3 Condition: Good - Instructions Diet, Activity, Other Instructions: Physical activity Resume your normal everyday activity as tolerated no heavy lifting or exercise until seen by your surgeon. You may walk unlimited tere of and climb stairs. You may resume driving the car when you feel safe and comfortable behind the wheel. No sexual activity as instructed. Wound care If you have a bandage, leave it on, and keep dry for 48-72 hours. After that time discard the outer bandage. If they are tapes on the skin under the out of bandage leave them in place. They will peel off in the next 7 to 10 days. Do Not Peel them off. You may shower the day after surgery. If there are tapes present on the skin, you may shower over them. Diet There are no dietary restrictions. Eat healthy, high-fiber foods. Drink 6 to 8 glasses of liquid each day. This will assist in keeping your bowels are regular. Pain management You may take Tylenol or acetaminophen or Ibuprofen (for example, Motrin, Advil etc.) from my pain prescription medication is ordered should be taken as prescribed for moderate to severe pain. Call MD for any of the following: Severe pain not relieved by medication Fever of 101 or higher Excessive bleeding or drainage on dressing Inability to urinate Referrals: Thais Marti MD [Family Provider] - Edin Almonte MD [Staff Physician] - Disposition: HOME - Home Medications Comprehensive Discharge Medication List: Ambulatory Orders Docusate Sodium [Colace -] 100 mg PO DAILY 06/05/17 Montelukast Na [Singulair -] 10 mg PO HS 06/05/17 Vit/Iron Fum/Folic AC [ Tablet] 1 each PO DAILY 06/05/17 Ranitidine HCl [Zantac] 150 mg PO DAILY 06/05/17 Polyethylene Glycol 3350 [Miralax 255 gm Btl -] 17 gm PO DAILY 05/22/18
[2018-11-27] MEDS: SIMETHICONE 80 MG TAB.CHEW (FP) PO PRN ×4 (08:14→21:30)
[2018-11-27] MEDS: POLYETHYLENE GLYCOL 3350 119 GM BTL PO SCH (09:47)
[2018-11-27] MEDS: RANITIDINE HCL 150 MG TABLET (FP) PO PRN (12:30)
[2018-11-27] MEDS: MONTELUKAST NA 10 MG TABLET PO SCH (21:33)
[2018-11-27] MEDS ORDERED: SENNOSIDES/DOCUSATE COMBO (SENNA PLUS) TABLET (UD) PO PRN (22:00)
[2018-11-28] MEDS: ACETAMINOPHEN 325 MG TABLET (FP) PO PRN ×2 (04:18→08:23)
[2018-11-28] MEDS: SIMETHICONE 80 MG TAB.CHEW (FP) PO PRN ×2 (04:18→08:22)
[2018-11-28] MEDS: IBUPROFEN 600 MG TABLET (FP) PO PRN ×2 (04:21→08:22)
[2018-11-28 07:02] LABS: BASO % 0.5 % (0-2.0); EOS % 1.1 % (0-4.5); HEMATOCRIT 35.1 % (32.4-45.2); HEMOGLOBIN 12.2 GM/dL (10.7-15.3); LYMPH % 16.6 % (8-40); MCH 32.2 pg (25.7-33.7); MCHC 34.6 g/dl (32.0-36.0); MEAN PLT VOLUME 6.7 fl (7.5-11.1); MONO % 4.7 % (3.8-10.2); NEUT % 77.1 % (42.8-82.8); PLATELET COUNT 192 K/MM3 (134-434); RBC 3.77 M/mm3 (3.60-5.2); RDW 17.8 % (11.6-15.6); WHITE BLOOD COUNT 8.4 K/mm3 (4.0-10.0)
--- NOTE | 2018-11-28 07:42 | PN ---
Progress Note (short form) - Note Progress Note: pod 3 doing well, no c/o , wants to go home today Current Medications Generic Name Dose Route Start Last Admin Trade Name Freq PRN Reason Stop Dose Admin Acetaminophen 650 mg 11/25/18 09:50 11/28/18 04:18 Tylenol - PO 650 mg Q4H PRN Administration PAIN LEVEL 1-5 Benzocaine 1 spray 11/25/18 09:47 [place] 20% [place] - TP PRN PRN Pain - Topical Benzocaine 1 applic 11/25/18 09:47 [place]aine Ointment - IL PRN PRN Pain - Topical Bisacodyl 10 mg 11/26/18 09:48 11/27/18 12:30 Dulcolax Suppository - IL 10 mg PRN PRN Administration CONSTIPATION Diphenhydramine HCl 25 mg 11/25/18 09:47 Benadryl - PO Q8H PRN FOR ITCHING Dextrose/Lactated Ringer's 1,000 mls @ 125 mls/hr 11/25/18 18:00 D5-Lr - IV ASDIR COUNT INCLUDES THE [facility] Parenteral Electrolytes 500 mls @ 125 mls/hr 11/25/18 14:45 11/25/18 14:15 Plasma-Lyte 148 - IV Not Given ASDIR AURELIANO Ibuprofen 600 mg 11/25/18 09:47 11/28/18 04:21 Motrin - PO 600 mg Q4H PRN Administration PAIN LEVEL 1 - 3 Methylergonovine Maleate 0.2 mg 11/25/18 09:47 Methergine Injection - IM Q4H PRN EXCESSIVE BLEEDING Montelukast Sodium 10 mg 11/25/18 22:00 11/27/18 21:33 Singulair - PO Not Given HS COUNT INCLUDES THE [facility] Oxycodone HCl 5 mg 11/25/18 09:47 Roxicodone - PO Q4H PRN PAIN LEVEL 4 - 6 Oxycodone HCl 10 mg 11/25/18 09:47 Roxicodone - PO Q4H PRN PAIN LEVEL 7 - 10 Polyethylene Glycol 17 gm 11/25/18 10:00 11/27/18 09:47 Miralax (For Daily Use) - PO 17 gm DAILY AURELIANO Administration Ranitidine HCl 150 mg 11/25/18 21:08 11/27/18 12:30 Zantac - PO 150 mg Q12H PRN Administration DYSPEPSIA Senna/Docusate Sodium 2 tablet 11/27/18 22:00 11/27/18 21:31 Pericolace - PO 2 tablet HS PRN Administration CONSTIPATION Simethicone 80 mg 11/25/18 09:47 11/28/18 04:18 Mylicon - PO 80 mg Q4H PRN Administration GAS Sodium Chloride 3 ml 11/26/18 10:34 11/26/18 11:30 Normal Saline For Inhalation - IH 3 ml Q6H PRN Administration COUGH [place]/Glycerin 1 pad 11/25/18 09:47 Tucks Pads - TP PRN PRN Pain - Topical Last Vital Signs Temp Pulse Resp BP Pulse Ox 98.1 F 68 18 96/65 98 11/27/18 22:00 11/27/18 22:00 11/27/18 22:00 11/27/18 22:00 11/26/18 21:00 abdomen soft, no distension, no cva , incision dry, clean no calf tenderness no excess vaginal bleeding plan cbc today d/c home follow up office 1 week
[2018-11-28 09:09] VITALS: BP 99/55; PULSE 74; TEMP 98.4
[2018-11-28] MEDS: POLYETHYLENE GLYCOL 3350 119 GM BTL PO SCH (09:52)
--- NOTE | 2018-12-10 16:36 | PATH ---
Surgical Pathology Report Patient Name: NENO LEAL [facility]. Rec. #: [id number] /Age/Gender: 1980 (Age: 38) / F Account: [id number] Location: [facility] OBS/ARMATURE COIL WINDER Taken: 11/25/2018 Received: 11/26/2018 Reported: 12/10/2018 Physicians: Lula Andrews M.D. Specimen(s) Received A: PLACENTA B: RIGHT FALLOPIAN TUBE C: LEFT FALLOPIAN TUBE Clinical History , 39 weeks repeat Final Diagnosis A. PLACENTA, SECTION: 534 G THIRD TRIMESTER PLACENTA WITH TRIVASCULAR UMBILICAL CORD, FOCAL INTRAPARENCHYMAL HEMORRHAGE (<15% OF PLACENTAL SURFACE), AND PLACENTAL MEMBRANES WITH MECONIUM LADEN MACROPHAGES. B. FALLOPIAN TUBE, RIGHT, PARTIAL EXCISION: UNREMARKABLE FALLOPIAN TUBE (INCLUDING FULL LUMINAL PORTION AND FIMBRIATED END). C. FALLOPIAN TUBE, LEFT, PARTIAL EXCISION: FALLOPIAN TUBE WITH FOCAL ENDOSALPINGOSIS (INCLUDING FULL LUMINAL PORTION AND FIMBRIATED END). Electronically Signed Teresita Rincon M.D. Gross Description A. The specimen is received fresh labeled placenta and is a 534 gram, 15.0 x 14.0 x 2.8 cm. placenta with attached membranes and umbilical cord. The attached membranes are fierro green and insert marginally. The umbilical cord measures 15 cm. in length and averages 1 cm. in diameter. The cord inserts centrally. No true knots or strictures are identified. Cut surface of the umbilical cord reveals 3 vessels. The surface is parr-blue with minimal fibrin deposition and appropriate caliber vessels. The maternal surface is red-brown with focal defects. Sectioning reveals a 2.0 cm in greatest dimension hemorrhagic intraparenchymal lesion. The remaining placental parenchyma is red-brown and spongy. Computed Tomography Scanner Operator sections are submitted in three cassettes as follows: 1-membrane roll and umbilical cord; 2-lesion; 6-vusn-jifhezgui section of placenta. B. Received in formalin labeled "right fallopian tube," is a 3 cm in length fimbriated fallopian tube. The outer surface is fierro-bolaños and smooth. Sectioning reveals an unremarkable lumen. Computed Tomography Scanner Operator sections are submitted in 2 cassettes as follows: 1-fimbria; 2-cross sections of fallopian tube. C. Received in formalin labeled "left fallopian tube," is a 0.9 cm in length fimbriated fallopian tube. The outer surface is fierro-bolaños and smooth. Sectioning reveals an unremarkable lumen. The specimen is entirely submitted in 2 cassettes as follows: 1-fimbria; 2-cross sections of fallopian tube. 12/09/201812/09/2018
== END 2018-11-28 10:10 | disposition home or self-care (01) | DRG 785 ==
LOC: JDEL 02:05 → JLDR 02:40 → J3W 11:17
PROVIDERS: ADMIT Obstetrics & Gynecology; ATTEND Obstetrics & Gynecology
PROC: 10D00Z1 Extraction of Products of Conception, Low, Open Approach (ICD-10-PCS; principal; 2018-11-25)
PROC: 0U570ZZ Destruction of Bilateral Fallopian Tubes, Open Approach (ICD-10-PCS; 2018-11-25)
DX: O34.211 Maternal care for low transverse scar from previous cesarean delivery (principal); O77.0 Labor and delivery complicated by meconium in amniotic fluid; O26.893 Other specified pregnancy related conditions, third trimester; J45.909 Unspecified asthma, uncomplicated; K21.9 Gastro-esophageal reflux disease without esophagitis; Z3A.39 39 weeks gestation of pregnancy; Z37.0 Single live birth; Z30.2 Encounter for sterilization
CPT/HCPCS: 36415; 36600; 82803; 85025; 85460; 85461; 86850; 86900; 86901; 86999; 88302-TC; 88307-TC

== ENCOUNTER 2019-01-16 09:42 | Day surgery (SDC) | payer BC ==
[2019-01-15 14:26] VITALS: BMI 21.6
[2019-01-16 12:25] VITALS: TEMP 97.5
[2019-01-16] MEDS ORDERED: ACETAMINOPHEN 325 MG TABLET (FP) ONE (13:14)
[2019-01-16] MEDS ORDERED: ACETAMINOPHEN 325 MG TABLET (FP) PO ONE (13:23)
[2019-01-16 13:54] VITALS: BP 104/63; PULSE 82
--- NOTE | 2019-01-19 11:15 | PATH ---
Surgical Pathology Report Patient Name: NENO LEAL [facility]. Rec. #: [id number] /Age/Gender: 1980 (Age: 38) / F Account: [id number] Location: [facility]ENDOSCOPY Taken: 01/16/2019 Received: 01/16/2019 Reported: 01/19/2019 Physicians: Gordy Aviles M.D. 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 DUODENUM, SECOND PORTION AND BULB, BIOPSY: DUODENAL MUCOSA WITH NO PATHOLOGIC CHANGES. NO HISTOLOGIC EVIDENCE OF GLUTEN SENSITIVE ENTEROPATHY (CELIAC SPRUE) IDENTIFIED. B. STOMACH, ANTRUM, BIOPSY: GASTRIC ANTRAL AND FUNDIC MUCOSA WITH FOCAL MILD CHRONIC GASTRITIS. IMMUNOSTAIN FOR H. PYLORI IS NEGATIVE. C. STOMACH, BODY POLYP, BIOPSY: GASTRIC FUNDIC MUCOSA WITH FOCAL HYPERPLASTIC CHANGES. NO ADENOMATOUS CHANGE IS IDENTIFIED. IMMUNOSTAIN FOR H. PYLORI IS NEGATIVE. D. COLON, CECUM, BIOPSY: TUBULAR ADENOMA. Electronically Signed Jimbo Clark M.D. Gross Description A. Received in formalin, labeled "biopsy second portion of duodenum and duodenal bulb" are 3 fierro, irregular portions of soft tissue ranging from 0.3-0.5 cm. in greatest dimension. The specimens are submitted in toto in one cassette. B. Received in formalin, labeled "biopsy antrum" are 6 fierro, irregular portions of soft tissue ranging from 0.3-0.5 cm. in greatest dimension. The specimens are submitted in toto in one cassette. C. Received in formalin, labeled "biopsy gastric body polyp" are 4 fierro, irregular portions of soft tissue ranging from 0.1-0.3 cm. in greatest dimension. The specimens are submitted in toto in one cassette. D. Received in formalin, labeled "biopsy cecal polyp" are 3 fierro, irregular portions of soft tissue ranging from 0.1-0.2 cm. in greatest dimension. The specimens are submitted in toto in one cassette. DL/01/16/2019 saudi01/16/2019
== END 2019-01-16 13:48 | disposition home or self-care (01) ==
LOC: JASU-ENDO 09:42
PROVIDERS: ATTEND Internal Medicine Gastroenterology
PROC: 0DB68ZX Excision of Stomach, Via Natural or Artificial Opening Endoscopic, Diagnostic (ICD-10-PCS; 2019-01-16)
PROC: 0DBH8ZX Excision of Cecum, Via Natural or Artificial Opening Endoscopic, Diagnostic (ICD-10-PCS; principal; 2019-01-16 10:30)
DX: Z12.11 Encounter for screening for malignant neoplasm of colon (principal); Z80.0 Family history of malignant neoplasm of digestive organs; Z86.010 Personal history of colon polyps; D12.0 Benign neoplasm of cecum; K64.8 Other hemorrhoids; K31.7 Polyp of stomach and duodenum; Z15.09 Genetic susceptibility to other malignant neoplasm
CPT/HCPCS: 84703; 88305-TC; 88342-TC

== ENCOUNTER 2022-04-11 04:15 | Day surgery (SDC) | payer BC, SELFPAY ==
[2022-04-11 07:21] VITALS: BMI 20.6
[2022-04-11 09:03] VITALS: TEMP 97.2
[2022-04-11 09:37] VITALS: BP 100/62; PULSE 83
== END 2022-04-11 10:12 | disposition home or self-care (01) ==
LOC: JASU-ENDO 04:15
PROVIDERS: ATTEND Internal Medicine Gastroenterology
PROC: 0DB98ZX Excision of Duodenum, Via Natural or Artificial Opening Endoscopic, Diagnostic (ICD-10-PCS; 2022-04-11)
PROC: 0DB78ZX Excision of Stomach, Pylorus, Via Natural or Artificial Opening Endoscopic, Diagnostic (ICD-10-PCS; 2022-04-11)
PROC: 0DB28ZX Excision of Middle Esophagus, Via Natural or Artificial Opening Endoscopic, Diagnostic (ICD-10-PCS; 2022-04-11)
PROC: 0DB38ZX Excision of Lower Esophagus, Via Natural or Artificial Opening Endoscopic, Diagnostic (ICD-10-PCS; 2022-04-11)
PROC: 0DBP8ZX Excision of Rectum, Via Natural or Artificial Opening Endoscopic, Diagnostic (ICD-10-PCS; principal; 2022-04-11 08:00)
DX: Z12.11 Encounter for screening for malignant neoplasm of colon (principal); K62.1 Rectal polyp; K64.8 Other hemorrhoids; K21.9 Gastro-esophageal reflux disease without esophagitis; K44.9 Diaphragmatic hernia without obstruction or gangrene; K29.50 Unspecified chronic gastritis without bleeding; Z15.09 Genetic susceptibility to other malignant neoplasm; Z86.010 Personal history of colon polyps; Z80.0 Family history of malignant neoplasm of digestive organs
CPT/HCPCS: 81025; 88305-TC; 88342-TC

== ENCOUNTER 2022-09-19 19:44 | Emergency (ER) | payer BC ==
[2022-09-19 20:16] VITALS: TEMP 98.7; BMI 20.7
[2022-09-19 21:26] LABS: BASO % 0.5 % (0-2.0); HEMATOCRIT 26.8 % (32.4-45.2); HEMOGLOBIN 9.1 GM/dL (10.7-15.3); MCH 31.3 pg (25.7-33.7); MCHC 33.8 g/dl (32.0-36.0); MEAN CELL VOLUME 92.5 fl (80-96); MEAN PLT VOLUME 6.9 fl (7.5-11.1); MONO % 3.9 % (3.8-10.2); NEUT % 63.6 % (42.8-82.8); PLATELET COUNT 383 10^3/uL (134-434); RDW 13.2 % (11.6-15.6); WHITE BLOOD COUNT 5.1 K/mm3 (4.0-10.0)
[2022-09-19 21:34] LABS: INR 0.97 (0.83-1.09); PROTHROMBIN TIME (PATIENT) 11.2 SEC (9.7-13.0)
[2022-09-19 21:37] LABS: ACTIVATED PTT 33.9 SECONDS (25.2-36.5)
[2022-09-19 21:49] LABS: CALCIUM 8.8 mg/dL (8.5-10.1)
[2022-09-19 21:50] LABS: ALBUMIN 3.8 g/dl (3.4-5.0); BLOOD UREA NITROGEN 8.4 mg/dL (7-18)
[2022-09-19 21:54] LABS: CREATININE 0.7 mg/dL (0.55-1.3)
[2022-09-19 21:55] LABS: BILIRUBIN,TOTAL 0.3 mg/dL (0.2-1); TOT PROT 6.9 g/dl (6.4-8.2)
[2022-09-19] MEDS ORDERED: POTASSIUM CHLORIDE TABS 20 MEQ TABLET.ER (FP) PO ONE ×2 (22:14→22:36)
[2022-09-19 22:36] LABS: RETICULOCYTES 4.76 % (0.5-1.5)
[2022-09-19 22:51] VITALS: BP 105/60; PULSE 80; RESP 16
== END 2022-09-19 22:52 | disposition home or self-care (01) ==
LOC: JER 19:44
DX: N93.9 Abnormal uterine and vaginal bleeding, unspecified (principal); D64.9 Anemia, unspecified
CPT/HCPCS: 36415; 71046-TC-FY; 80053; 83615; 84484; 84703; 85025; 85045; 85610; 85730; 86850; 86900; 86901; 93005; 93010; 99285-25

== ENCOUNTER 2023-09-03 04:27 | Day surgery (SDC) | payer BC ==
[2023-08-29 11:40] VITALS: BMI 20.6
[2023-09-03 12:25] VITALS: BP 106/65; PULSE 74; RESP 18; TEMP 98
== END 2023-09-03 12:40 | disposition home or self-care (01) ==
LOC: JASU-ENDO 04:27
PROVIDERS: ATTEND Internal Medicine Gastroenterology
PROC: 0DB98ZX Excision of Duodenum, Via Natural or Artificial Opening Endoscopic, Diagnostic (ICD-10-PCS; 2023-09-03)
PROC: 0DB78ZX Excision of Stomach, Pylorus, Via Natural or Artificial Opening Endoscopic, Diagnostic (ICD-10-PCS; 2023-09-03)
PROC: 0DB28ZX Excision of Middle Esophagus, Via Natural or Artificial Opening Endoscopic, Diagnostic (ICD-10-PCS; 2023-09-03)
PROC: 0DB38ZX Excision of Lower Esophagus, Via Natural or Artificial Opening Endoscopic, Diagnostic (ICD-10-PCS; 2023-09-03)
PROC: 0DB48ZX Excision of Esophagogastric Junction, Via Natural or Artificial Opening Endoscopic, Diagnostic (ICD-10-PCS; 2023-09-03)
PROC: 0DBP8ZX Excision of Rectum, Via Natural or Artificial Opening Endoscopic, Diagnostic (ICD-10-PCS; principal; 2023-09-03 10:00)
DX: Z12.11 Encounter for screening for malignant neoplasm of colon (principal); K62.1 Rectal polyp; K64.8 Other hemorrhoids; K29.50 Unspecified chronic gastritis without bleeding; K21.00 Gastro-esophageal reflux disease with esophagitis, without bleeding; K44.9 Diaphragmatic hernia without obstruction or gangrene; Z86.010 Personal history of colon polyps; Z80.0 Family history of malignant neoplasm of digestive organs; Z15.09 Genetic susceptibility to other malignant neoplasm
CPT/HCPCS: 81025; 88305-TC

== ENCOUNTER 2024-09-04 04:43 | Day surgery (SDC) | payer BC ==
[2024-09-02 14:26] VITALS: BMI 21.4
[2024-09-04 12:47] VITALS: TEMP 98
[2024-09-04 13:32] VITALS: BP 100/53; RESP 18
[2024-09-04 13:48] VITALS: PULSE 65
== END 2024-09-04 13:30 | disposition home or self-care (01) ==
LOC: JASU-ENDO 04:43
PROVIDERS: ATTEND Internal Medicine Gastroenterology
PROC: 0DBP8ZX Excision of Rectum, Via Natural or Artificial Opening Endoscopic, Diagnostic (ICD-10-PCS; 2024-09-04)
PROC: 0DB98ZX Excision of Duodenum, Via Natural or Artificial Opening Endoscopic, Diagnostic (ICD-10-PCS; 2024-09-04)
PROC: 0DB68ZX Excision of Stomach, Via Natural or Artificial Opening Endoscopic, Diagnostic (ICD-10-PCS; 2024-09-04)
PROC: 0DB28ZX Excision of Middle Esophagus, Via Natural or Artificial Opening Endoscopic, Diagnostic (ICD-10-PCS; 2024-09-04)
PROC: 0DB38ZX Excision of Lower Esophagus, Via Natural or Artificial Opening Endoscopic, Diagnostic (ICD-10-PCS; 2024-09-04)
PROC: 0DBK8ZX Excision of Ascending Colon, Via Natural or Artificial Opening Endoscopic, Diagnostic (ICD-10-PCS; principal; 2024-09-04 11:00)
DX: Z12.11 Encounter for screening for malignant neoplasm of colon (principal); D12.2 Benign neoplasm of ascending colon; D12.8 Benign neoplasm of rectum; K64.4 Residual hemorrhoidal skin tags; K64.8 Other hemorrhoids; K29.50 Unspecified chronic gastritis without bleeding; K21.00 Gastro-esophageal reflux disease with esophagitis, without bleeding; K20.90 Esophagitis, unspecified without bleeding; Z86.0100 Personal history of colon polyps, unspecified; Z80.0 Family history of malignant neoplasm of digestive organs
CPT/HCPCS: 81025; 88305-TC; 88342-TC

== ENCOUNTER 2025-06-01 16:45 | Emergency (ER) | payer BC ==
[2025-06-01 17:06] VITALS: BP 110/62; PULSE 81; RESP 18; TEMP 98.8; BMI 22.1
[2025-06-01 18:30] LABS: HCG,QUALITATIVE URINE Negative
[2025-06-01 18:58] LABS: ABSOLUTE IMMATURE GRANULOCYTES 0.01 x10^3/uL (0.0-0.031); BASOPHILS # 0.02 x10^3/uL (0.01-0.08); EOSINOPHIL % 1.0 % (0.7-5.8); EOSINOPHILS # 0.07 x10^3/uL (0.04-0.36); MCHC 33.3 g/dl (32.2-35.5); MEAN CELL VOLUME 92.7 fl (79.4-94.8); MEAN PLT VOLUME 8.6 fl (9.4-12.3); MONOCYTE # 0.37 x10^3/uL (0.24-0.86); MONOCYTE % 5.4 % (4.7-12.5); RDW 12.4 % (12.2-17.1)
[2025-06-01] MEDS ORDERED: ACETAMINOPHEN INJECTION 100 ML ONE (19:06)
[2025-06-01] MEDS: SODIUM CHLORIDE 1,000 ML IV STA (19:08)
[2025-06-01] MEDS: ACETAMINOPHEN 1000 MG/100 ML BAG IVPB ONE (19:09)
[2025-06-01 19:17] LABS: ALK PHOS 74.0 U/L (45-117); CO2 28.0 mmol/L (21-32); CREATININE 0.6 mg/dl (0.6-1.3); GLUCOSE,RANDOM 84.0 mg/dl (74-106); SGOT/AST 21.0 U/L (15-37); SGPT/ALT 22.0 U/L (7-52); TOT PROT 7.2 g/dl (6.4-8.2)
== END 2025-06-01 22:59 | disposition home or self-care (01) ==
LOC: FER 16:45
PROC: 3E033NZ Introduction of Analgesics, Hypnotics, Sedatives into Peripheral Vein, Percutaneous Approach (ICD-10-PCS; principal; 2025-06-01)
PROC: 3E0337Z Introduction of Electrolytic and Water Balance Substance into Peripheral Vein, Percutaneous Approach (ICD-10-PCS; 2025-06-01)
DX: R10.31 Right lower quadrant pain (principal); R14.0 Abdominal distension (gaseous)
CPT/HCPCS: 36415; 74177-TC; 80053; 81003; 81015; 84703; 85025; 87086; 99285-25; Q9967